=== PATIENT | female | born 1990 | race Asian ===

== ENCOUNTER → 2024-03-19 13:37 | Outpatient (REF) | payer BC, SELFPAY | LOC: PNTC 13:37 | PROVIDERS: ATTENDING PHYSICIAN Obstetrics & Gynecology | DX: O09.529 Supervision of elderly multigravida, unspecified trimester (principal); O42.913 Preterm premature rupture of membranes, unspecified as to length of time between rupture and onset of labor, third trimester | CPT/HCPCS: 76805 ==

== ENCOUNTER → 2024-03-21 10:23 | Outpatient (REF) | payer BC, SELFPAY | LOC: PNTC 10:23 | PROVIDERS: ATTENDING PHYSICIAN Obstetrics & Gynecology | DX: O60.10X0 Preterm labor with preterm delivery, unspecified trimester, not applicable or unspecified (principal); Z36.0 Encounter for antenatal screening for chromosomal anomalies; O34.219 Maternal care for unspecified type scar from previous cesarean delivery | CPT/HCPCS: 76817 ==

== ENCOUNTER → 2024-04-11 13:28 | Outpatient (REF) | payer BC, SELFPAY | LOC: PNTC 13:28 | PROVIDERS: ATTENDING PHYSICIAN Obstetrics & Gynecology | DX: O42.913 Preterm premature rupture of membranes, unspecified as to length of time between rupture and onset of labor, third trimester (principal) | CPT/HCPCS: 76815; 76817 ==

== ENCOUNTER → 2024-04-26 11:13 | Outpatient (REF) | payer BC, SELFPAY | LOC: PNTC 11:13 | PROVIDERS: ATTENDING PHYSICIAN Obstetrics & Gynecology | DX: O42.913 Preterm premature rupture of membranes, unspecified as to length of time between rupture and onset of labor, third trimester (principal) | CPT/HCPCS: 76816; 76817 ==

== ENCOUNTER 2024-06-06 13:17 | Observation (INO) | payer BC, SELFPAY ==
[2024-06-06 13:46] VITALS: BP 127/71; BMI 22.5
== END 2024-06-06 13:50 | disposition home or self-care (01) ==
LOC: LDRP 13:17
PROVIDERS: ADMITTING PHYSICIAN Obstetrics & Gynecology
DX: R10.10 Upper abdominal pain, unspecified (principal); K59.00 Constipation, unspecified; R11.0 Nausea; Z3A.30 30 weeks gestation of pregnancy; O26.23 Pregnancy care for patient with recurrent pregnancy loss, third trimester; Z82.49 Family history of ischemic heart disease and other diseases of the circulatory system
CPT/HCPCS: 59025; G0378

== ENCOUNTER → 2024-06-20 11:43 | Outpatient (REF) | payer BC, SELFPAY | LOC: PNTC 11:43 | PROVIDERS: ATTENDING PHYSICIAN Obstetrics & Gynecology | DX: O42.90 Premature rupture of membranes, unspecified as to length of time between rupture and onset of labor, unspecified weeks of gestation (principal) | CPT/HCPCS: 76816; 76817 ==

== ENCOUNTER 2024-08-06 09:49 | Inpatient (IN) | payer BC, SELFPAY ==
[2024-08-06] MEDS: LR 1000 IV (10:15)
[2024-08-06 10:24] VITALS: BP 121/84; BMI 24.2
[2024-08-06 10:29] LABS: Hematocrit 35.5 % (37.0-47.0); Hemoglobin 11.6 g/dL (12.0-16.0); Mean Corp Hgb Conc. 32.7 g/dL (33.0-37.0); Mean Corpuscular Hgb 29.7 pg (27.0-31.0); Mean Corpuscular Volume 90.8 fL (81.0-99.0); Mean Platelet Volume 9.8 fL (7.4-10.4); Platelet Count 306 10^3/uL (130-400); Red Blood Cell Count 3.91 10^6/uL (4.20-5.40); Red Cell Dist. Width 12.7 % (11.5-14.5); White Blood Cell Count 7.2 10^3/uL (4.8-10.8)
[2024-08-06] MEDS: TYLENOL 1000 MG PO (10:46)
[2024-08-06] MEDS: BICITRA 30 ML PO (10:46)
[2024-08-06] MEDS: ANCEF 10 IV (11:41)
[2024-08-06] MEDS: PITOCIN 30 UNITS/NSS 500 ML IV (13:15)
[2024-08-06] MEDS: TORADOL 15 MG IV ×2 (14:06→20:04)
[2024-08-07] MEDS: TORADOL 15 MG IV ×2 (02:14→08:19)
[2024-08-07 04:55] LABS: Hematocrit 28.9 % (37.0-47.0); Hemoglobin 9.8 g/dL (12.0-16.0); Mean Corp Hgb Conc. 33.9 g/dL (33.0-37.0); Mean Corpuscular Hgb 30.3 pg (27.0-31.0); Mean Corpuscular Volume 89.5 fL (81.0-99.0); Mean Platelet Volume 9.9 fL (7.4-10.4); Platelet Count 272 10^3/uL (130-400); Red Blood Cell Count 3.23 10^6/uL (4.20-5.40); Red Cell Dist. Width 12.5 % (11.5-14.5); White Blood Cell Count 13.2 10^3/uL (4.8-10.8)
[2024-08-07] MEDS: FEOSOL 325 MG PO (08:19)
[2024-08-07] MEDS: PRENATAL PLUS 1 TABLET PO (08:19)
--- NOTE | 2024-08-07 08:27 | W.PN.ANS.POP ---
Anesthesia Post Operative
- Anesthesia Post Op Note
Vital Signs Stable-See Nursing Note: Yes
Airway Patent: Yes
Adequate Pain Control: Yes
Change in Mental Status: No
Current Postoperative Nausea & Vomiting: No
Anesthesia Complications: No
General Anesthetic Recall: No (N/A)
Unplanned Admission: No
Post Op Hydration Adequate: Yes
[2024-08-07] MEDS: TYLENOL 650 MG PO ×2 (14:40→20:49)
[2024-08-07] MEDS: MOTRIN 600 MG PO ×2 (14:40→20:49)
[2024-08-07 15:31] LABS: Syphilis/T. pallidum Ab Reflex Negative (Negative)
[2024-08-08] MEDS: TYLENOL 650 MG PO (04:15)
[2024-08-08] MEDS: MOTRIN 600 MG PO (04:16)
[2024-08-08] MEDS: SENOKOT-S 1 TABLET PO (07:56)
[2024-08-08] MEDS: FEOSOL 325 MG PO (07:56)
[2024-08-08] MEDS: PRENATAL PLUS 1 TABLET PO (07:56)
--- NOTE | 2024-08-08 09:36 | W.DCSUMMARY ---
Documented by User: Flaca Marcum MD, Resident 08/08/24 09:41
Discharge Summary
Discharge Data
Date of Admission: 08/06/24
Date of Discharge: 08/08/24
-
Pending Results: No
Hospital Course
Discharging Physician : Dr. Marcum, Dr. Bess
Disposition : Home
Principal Discharge diagnosis : status post repeat section and bilateral salpingectomy
Hospital Course : 34yo who presented to L&D 08/06/24 for her scheduled repeat section and bilateral salpingectomy. Her course complicated by history of PPROM at 33w6d and prior c/s for breech presentation. She declined
TOLAC this . She desired permanent sterilization. Her surgery and postoperative course were uncomplicated. She had mild range BP on postop day 0, but did not meet criteria for gestational hypertension. On day of discharge she was stable.
Discharge Plan
-
Patient Disposition: Home (Routine Discharge)
Discharge Diagnosis/Procedures: status post repeat and bilateral salpingectomy; anemia, asymptomatic
Condition: Good
Diet: No restrictions
Stand Alone Forms: [facility]P Delivery
Referrals:
Kesha Sepulveda, DO [Active] - in two weeks (Call your [facility] office to schedule appointment in 2 weeks for incision check. You should also schedule appointment in 6 weeks for routine check up.)
UNKNOWN,NO INTERVIEW [Family Provider] -
Prescriptions:
New
ferrous sulfate [FeroSul] 325 mg (65 mg iron) Tablet
325 mg PO DAILY Qty: 30 0RF
acetaminophen 325 mg Tablet
650 mg PO Q4HPRN PRN (Reason: mild pain) Qty: 0 0RF
sennosides-docusate sodium 8.6-50 mg Tablet
1 tab PO DAILYPRN PRN (Reason: constipation) Qty: 0 0RF
ibuprofen 600 mg tablet
600 mg PO Q6H PRN (Reason: Pain) Qty: 60 0RF
Continued
[id number] 1 mg Tablet
1 tab PO DAILY
Discharge Orders:
Discharge Patient (As Directed); Ordered 08/08/24
Ordered By: Flaca Marcum
Discharge Date and Time
Print Language: PORTUGUESE

Documented by User: Agatha Bess DO 08/08/24 10:28
Discharge Summary
Discharge Data
Date of Admission: 08/06/24
Date of Discharge: 08/08/24
Discharge Plan
-
Patient Disposition: Home (Routine Discharge)
Discharge Diagnosis/Procedures: status post repeat and bilateral salpingectomy; anemia, asymptomatic
Condition: Good
Diet: No restrictions
Stand Alone Forms: LDRP Delivery
Referrals:
Kesha Sepulveda DO [Active] - in two weeks (Call your [facility] office to schedule appointment in 2 weeks for incision check. You should also schedule appointment in 6 weeks for routine check up.)
UNKNOWN,NO INTERVIEW [Family Provider] -
Prescriptions:
New
ferrous sulfate [FeroSul] 325 mg (65 mg iron) Tablet
325 mg PO DAILY Qty: 30 0RF
acetaminophen 325 mg Tablet
650 mg PO Q4HPRN PRN (Reason: mild pain) Qty: 0 0RF
sennosides-docusate sodium 8.6-50 mg Tablet
1 tab PO DAILYPRN PRN (Reason: constipation) Qty: 0 0RF
ibuprofen 600 mg tablet
600 mg PO Q6H PRN (Reason: Pain) Qty: 60 0RF
Continued
[id number] 1 mg Tablet
1 tab PO DAILY
Discharge Orders:
Discharge Patient (As Directed); Ordered 08/08/24
Ordered By: Flaca Marcum
Discharge Date and Time
Print Language: PORTUGUESE
== END 2024-08-08 14:49 | disposition home or self-care (01) | DRG 785 ==
LOC: LDRP 09:49
PROVIDERS: ADMITTING PHYSICIAN Obstetrics & Gynecology
PROC: 10D00Z1 Extraction of Products of Conception, Low, Open Approach (ICD-10-PCS; 2024-08-06)
PROC: 0UT70ZZ Resection of Bilateral Fallopian Tubes, Open Approach (ICD-10-PCS; 2024-08-06)
DX: O34.211 Maternal care for low transverse scar from previous cesarean delivery (principal); O69.81X0 Labor and delivery complicated by cord around neck, without compression, not applicable or unspecified; Z3A.39 39 weeks gestation of pregnancy; Z37.0 Single live birth; N85.8 Other specified noninflammatory disorders of uterus; O99.72 Diseases of the skin and subcutaneous tissue complicating childbirth; Z30.2 Encounter for sterilization; L91.0 Hypertrophic scar
CPT/HCPCS: 88302; 36415; 58605; 85027; 86780; 86850; 86900; 86901